=== PATIENT | male | born 1970 | race African-American/Black ===

== ENCOUNTER 2018-09-16 07:30 | Emergency (ER) | payer MEDICAID ==
[~2018-09-16] VITALS: Ht 177.8 cm; Wt 90.0 kg
[2018-09-16] MEDS ORDERED: ARIP2TAB3 PO (07:35)
[2018-09-16] MEDS ORDERED: PHEN-434 PO (07:35)
[2018-09-16] MEDS ORDERED: ASPI-986 PO (07:35)
[2018-09-16] MEDS ORDERED: GABA-529 PO (07:35)
[2018-09-16] MEDS ORDERED: SERT20OR PO (07:35)
[2018-09-16] MEDS ORDERED: KETOROLAC 30MG/ML VIAL IV STA (08:14)
[2018-09-16] MEDS ORDERED: ONDANSETRON HCL 4MG/2ML INJ IV STA (08:14)
[2018-09-16] MEDS ORDERED: FAMOTIDINE 20MG/2ML VIAL IV STA (08:14)
[2018-09-16] MEDS ORDERED: SODIUM CHLORIDE 0.9% 1,000 ML IV ONE (08:14)
[2018-09-16 08:37] LABS: HEMATOCRIT. 50.8 % (42.0-52.0); HEMOGLOBIN. 17.1 g/dL (14.0-18.0); MEAN CORPUSCULAR HEMOGLOBIN 31.1 pg (28.0-32.0); MEAN CORPUSCULAR VOLUME 92.3 fL (80.0-94.0); PLATELET 213 x1000/uL (130-400); RED BLOOD CELL COUNT 5.51 mill/uL (4.7-6.1)
[2018-09-16 08:40] LABS: CHLORIDE 113 mEq/L (98-107)
[2018-09-16 09:00] LABS: PLATELET ESTIMATE NORMAL
[2018-09-16 10:46] VITALS: BP 124/67
== END 2018-09-16 10:47 | disposition home or self-care (01) ==
LOC: ER 07:43
DX: R10.13 Epigastric pain (principal); R11.10 Vomiting, unspecified; R19.7 Diarrhea, unspecified; G40.909 Epilepsy, unspecified, not intractable, without status epilepticus; J45.909 Unspecified asthma, uncomplicated
CPT/HCPCS: 36415; 80053; 83690; 85025; 96361; 96374; 96375; 99283; J1885; J2405; J3490; J7030

== ENCOUNTER 2020-01-07 18:45 | Emergency (ER) | payer MEDICAID ==
[~2020-01-07] VITALS: Ht 175.3 cm; Wt 85.7 kg
[~2020-01-07 18:45] MED LIST: ARIP2TAB3 PO; ASPI-986 PO; GABA-529 PO; PHEN-434 PO; SERT20OR PO
[2020-01-07] MEDS ORDERED: MORPHINE SULFATE 4 MG/ML CPJ (NOT FOR IM USE) IV STA (19:41)
[2020-01-07] MEDS ORDERED: ONDANSETRON HCL 4MG/2ML INJ IV STA (19:41)
[2020-01-07] MEDS ORDERED: SODIUM CHLORIDE 0.9% 1,000 ML IV ONE (19:41)
[2020-01-07 20:10] LABS: BASOPHILS % 1.5 % (0.0-2.0); EOSINOPHILS % 2.3 % (0.0-5.0); HEMATOCRIT. 45.7 % (42.0-52.0); HEMOGLOBIN. 15.4 g/dL (14.0-18.0); LYMPHOCYTES % 37.1 % (20.0-50.0); MEAN CORPUSCULAR VOLUME 92.1 fL (80.0-94.0); MEAN PLATELET VOLUME 7.6 fl (7.4-10.4); MONOCYTES % 10.2 % (2.0-8.0); NEUTROPHILS % 48.9 % (40.0-76.0); PLATELET 259 x1000/uL (130-400); RED BLOOD CELL COUNT 4.96 mill/uL (4.7-6.1); RED CELL DISTRIBUTION WIDTH 13.5 % (11.6-14.6)
[2020-01-07 20:15] LABS: CHLORIDE 109 mEq/L (98-107)
[2020-01-07 20:19] LABS: PARTIAL THROMBOPLASTIN TIME 25.3 sec (23.4-31.0); PROTHROMBIN TIME 10.3 sec (9.6-11.0)
[2020-01-07 21:45] LABS: CLARITY URINE CLEAR (CLEAR); COLOR URINE YELLOW (YELLOW); KETONES URINE TRACE (NEGATIVE); LEUKOCYTE ESTERASE URINE TRACE (NEGATIVE); NITRITE URINE NEGATIVE (NEGATIVE); OCCULT BLOOD URINE NEGATIVE (NEGATIVE); PH URINE 5.5 (4.5-8.0); PROTEIN URINE NEGATIVE (NEGATIVE); SPECIFIC GRAVITY URINE 1.034 (1.005-1.030)
[2020-01-08] MEDS ORDERED: HYDROCODONE/ACETAMINOPHEN 5/325MG TABLET PO ONE
[2020-01-08 01:22] VITALS: BP 150/91
== END 2020-01-08 01:25 | disposition home or self-care (01) ==
LOC: ER 18:45
DX: M54.9 Dorsalgia, unspecified (principal); N39.0 Urinary tract infection, site not specified; J45.909 Unspecified asthma, uncomplicated; Z79.899 Other long term (current) drug therapy; Z88.6 Allergy status to analgesic agent; Z88.5 Allergy status to narcotic agent
CPT/HCPCS: 36415; 71045; 72148; 80053; 81003; 85025; 85610; 85730; 86850; 86900; 86901; 87086; 93005; 96361; 96374; 96375; 99285; J2270; J2405; J7030

== ENCOUNTER 2025-03-18 23:41 | Emergency (ER) | payer MEDICAID, OTHER ==
[~2025-03-18] VITALS: Ht 175.3 cm; Wt 77.0 kg
[~2025-03-18 23:41] MED LIST changes: -SERT20OR PO; +SERT20OR13 PO
[2025-03-18 23:52] VITALS: TEMP 98.1; O2SAT 99
[2025-03-19 01:30] VITALS: BP 151/89; PULSE 70; RESP 17
[2025-03-19] MEDS: OXYCODONE HCL 10MG TABLET SR 12HR PO ONE (01:30)
[2025-03-19] MEDS: LIDOCAINE 5% PATCH TOP SCH (01:30)
[2025-03-19] MEDS ORDERED: OXYC-662 MT (01:56)
[2025-03-19] MEDS ORDERED: CYCL5TAB3 MT (01:56)
[2025-03-19] MEDS ORDERED: LIDO-53 TP (01:56)
== END 2025-03-19 02:41 | disposition home or self-care (01) ==
LOC: ER 23:41
DX: M54.50 Low back pain, unspecified (principal); Z88.5 Allergy status to narcotic agent; Z88.6 Allergy status to analgesic agent
CPT/HCPCS: 99283; 72100; Z7610 ×2